=== PATIENT | male | born 1945 | race Caucasian/White ===

== ENCOUNTER 2019-01-03 08:32 | Emergency (ER) | payer MEDICARE, OTHER ==
[~2019-01-03] VITALS: Ht 180.3 cm; Wt 93.1 kg
[2019-01-03 08:32] VITALS: BP 167/91
--- NOTE | 2019-01-03 09:10 | PHYS DOC ---
Past History Past Medical History: CAD, High Cholesterol, Hypertension Past Surgical History: Other (cardiac stent) Smoking: Non-smoker Alcohol Use: Occasionally Drug Use: None Adult General Chief Complaint Chief Complaint: LOWER EXT PAIN HPI HPI Patient is a 73-year-old male presents with bilateral lower extremity swelling for the past several days. 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 Patient normally lives in [place] and drove up here approximately a week ago, this is an approximately [address] Reports that the swelling has been getting worse over the past week. 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 Denies any chest pain, palpitations, or difficulty breathing. Denies any trauma. Denies any known hypercoagulable state. Discomfort is mild. Patient's medical history is significant for coronary disease, having had cardiac stents. He denies being on any diuretic medication.[] Review of Systems Review of Systems Constitutional: Denies fever or chills [] Eyes: Denies change in visual acuity, redness, or eye pain [] HENT: Denies nasal congestion or sore throat [] Respiratory: Denies cough or shortness of breath [] Cardiovascular: No chest pain or palpitations[] GI: Denies abdominal pain, nausea, vomiting, bloody stools or diarrhea [] : Denies dysuria or hematuria [] Musculoskeletal: Denies back pain or joint pain, see history of present illness [] Integument: Denies rash or skin lesions [] Neurologic: Denies headache, focal weakness or sensory changes [] Endocrine: Denies polyuria or polydipsia [] All other systems were reviewed and found to be within normal limits, except as documented in this note. Allergies Allergies Allergies Coded Allergies Type Severity Reaction Last Updated Verified No Known Drug Allergies 01/03/19 No Physical Exam Physical Exam Constitutional: Well developed, well nourished, no acute distress, non-toxic appearance. [] HENT: Normocephalic, atraumatic, bilateral external ears normal, oropharynx moist, no oral exudates, nose normal. [] Eyes: PERRLA, EOMI, conjunctiva normal, no discharge. [] Neck: Normal range of motion, no tenderness, supple, no stridor. No JVD [] Cardiovascular:Heart rate regular rhythm, no murmur [] Lungs & Thorax: Bilateral breath sounds clear to auscultation [] Abdomen: Not examined[] Skin: Warm, dry, no erythema, no rash. [] Back: No tenderness, no CVA tenderness. [] Extremities: No tenderness, no cyanosis, no clubbing, ROM intact, 1-2+ pretibial edema.. [] Neurologic: Alert and oriented X 3, normal motor function, normal sensory function, no focal deficits noted. [] Psychologic: Affect normal, judgement normal, mood normal. [] EKG EKG EKG shows a sinus rhythm at 67 bpm, normal axis, normal QTC at 400 ms, no ST elevation. Interpreted by me at 0910. No old EKG available for comparison.[] Radiology/Procedures Radiology/Procedures PROCEDURE: CHEST PA & LATERAL CHEST PA LATERAL History: Lower extremity swelling Comparison: None. Findings: The cardiomediastinal silhouette is normal. Pulmonary vasculature is normal. The lungs are clear. No pleural effusion or pneumothorax is seen. There is no acute bone abnormality. Scoliosis of the lower thoracic and upper lumbar spine noted. IMPRESSION: No acute cardiopulmonary process. Ultrasound of bilateral extremities, lower, shows no evidence of a DVT.[] Course & Med Decision Making Course & Med Decision Making Pertinent Labs and Imaging studies reviewed. (See chart for details) D course: Patient arrived, was placed in bed, and tolerated exam well. Was transported to and from radiology with any complications. After the return of the laboratory and imaging findings, these were discussed with the patient voiced understanding. All questions were answered. He was discharged in improved condition. Medical decision making: There is no evidence of congestive heart failure, acute coronary syndrome, nor a DVT. Believe this to be peripheral edema due to both chair positioning, as well as possible changes in his diet with traveling[] Dragon Disclaimer Dragon Disclaimer This electronic medical record was generated, in whole or in part, using a voice recognition dictation system. Departure Departure: Impression: Primary Impression: Peripheral edema Disposition: 01 HOME, SELF-CARE Condition: IMPROVED Referrals: PCP,NO (PCP) Patient Instructions: Peripheral Edema Additional Instructions: Follow-up with your regular doctor. Avoid salt in your diet. Wear compression socks while up and about during the day. Return to the ER if worsening pain, swelling, difficulty breathing, or any other concerns. Scripts Furosemide (LASIX) 20 Mg Tablet 20 MG PO DAILY for peripheral edema for 5 Days, #5 TAB Prov: SAMMI NEGRO DO 01/03/19 SAMMI NEGRO DO Jan 03, 2019 09:10
[2019-01-03 09:20] LABS: BASO % 1 % (0-3); EOS # 0.4 x10^3/uL (0.0-0.7); EOS % 8 % (0-3); HEMATOCRIT 40.4 % (39.0-53.0); HEMOGLOBIN 13.9 g/dL (13.0-17.5); LYMPH # 1.6 x10^3/uL (1.0-4.8); LYMPH % 33 % (24-48); MEAN CORPUSCULAR HEMOGLOBIN 31 pg (25-35); MEAN CORPUSCULAR HGB CONC 34 g/dL (31-37); MEAN CORPUSCULAR VOLUME 91 fL (79-100); MONO # 0.4 x10^3/uL (0.0-1.1); MONO % 9 % (0-9); NEUT # 2.5 x10^3uL (1.8-7.7); NEUT % 50 % (31-73); PLATELET COUNT 165 x10^3/uL (140-400); RED BLOOD COUNT 4.45 x10^6/uL (4.30-5.70); RED CELL DISTRIBUTION WIDTH 13.4 % (11.5-14.5)
[2019-01-03 09:40] LABS: ALBUMIN 3.5 g/dL (3.4-5.0); ALBUMIN/GLOBULIN RATIO 1.1 (1.0-1.7); CALCIUM 8.2 mg/dL (8.5-10.1); CREATININE 1.5 mg/dL (0.7-1.3); GFR 46.1; MAGNESIUM 1.5 mg/dL (1.8-2.4); POTASSIUM 3.8 mmol/L (3.5-5.1); TOTAL BILIRUBIN 0.6 mg/dL (0.2-1.0); TOTAL PROTEIN 6.8 g/dL (6.4-8.2)
--- NOTE | 2019-01-03 09:56 | RAD ---
CHEST PA LATERAL History: Lower extremity swelling Comparison: None. Findings: The cardiomediastinal silhouette is normal. Pulmonary vasculature is normal. The lungs are clear. No pleural effusion or pneumothorax is seen. There is no acute bone abnormality. Scoliosis of the lower thoracic and upper lumbar spine noted. IMPRESSION: No acute cardiopulmonary process. Electronically signed by: Endy Cordon MD (01/03/2019 9:53 AM) [facility]
[2019-01-03] MEDS ORDERED: FURO-69 PO (10:17)
--- NOTE | 2019-01-03 10:47 | RAD ---
Examination: VENOUS LOWER EXT BILATERAL History: Lower extremity swelling. Recent travel. Comparison/Correlation: None FINDINGS: Bilateral lower extremity duplex venous ultrasound exam was performed. Grayscale, color Doppler, and spectral Doppler imaging was performed. Compression and augmentation was performed. The right common femoral vein, superficial femoral vein, popliteal vein, and greater saphenous vein are normal with no evidence of deep venous thrombus. Normal compressibility and augmentation is evident. The left common femoral vein, superficial femoral vein, popliteal vein, and greater saphenous vein are normal with no evidence of deep venous thrombus. Normal compressibility and augmentation is evident. Visualized calf veins are unremarkable There is a right popliteal cyst measuring 3.5 cm x 0.9 cm x 1.5 cm. IMPRESSION: Right popliteal cyst. No evidence of deep venous thrombus involving the lower extremities. Electronically signed by: Endy Cordon MD (01/03/2019 10:44 AM) [facility]
--- NOTE | 2019-01-03 13:47 | EKG ---
[address] [address] Test Date: 2019-01-03 Test Time: 09:04:07 Pat Name: JONNY MALHOTRA Department: Room: Gender: M [employer]: BOB : 1945 Requested By: SAMMI NEGRO Order Number: [id number] Reading MD: Measurements Intervals [place] Rate: 67 P: 39 [place]: 150 QRS: 21 QRSD: 88 T: 43 QT: 376 QTc: 400 Interpretive Statements SINUS RHYTHM QRS(T) CONTOUR ABNORMALITY CONSIDER ANTEROSEPTAL MYOCARDIAL DAMAGE POSSIBLY ABNORMAL ECG RI6.01 No previous ECG available for comparison
== END 2019-01-03 10:22 | disposition home or self-care (01) ==
LOC: ER 08:32
DX: R60.0 Localized edema (principal); I25.10 Atherosclerotic heart disease of native coronary artery without angina pectoris; E78.00 Pure hypercholesterolemia, unspecified; I10 Essential (primary) hypertension; Z95.818 Presence of other cardiac implants and grafts
CPT/HCPCS: 36415; 71046; 80053; 83735; 83880; 84484; 85025; 85610; 85730; 93005; 93970; 99285-25